=== PATIENT | male | born 1975 ===

== ENCOUNTER 2020-10-30 19:23 | Emergency (ER) | payer SELFPAY ==
[~2020-10-30] VITALS: Ht 170.2 cm; Wt 79.5 kg
[2020-10-30 19:26] VITALS: BP 121/79
== END 2020-10-30 20:00 | disposition left against medical advice (07) ==
LOC: EMS 19:25
DX: Z00.00 Encounter for general adult medical examination without abnormal findings (principal); Z53.21 Procedure and treatment not carried out due to patient leaving prior to being seen by health care provider